=== PATIENT | male | born 1985 | race Caucasian/White ===

== ENCOUNTER 2020-01-15 18:20 | Emergency (ER) | payer SELFPAY ==
--- NOTE | 2020-01-15 19:20 | EDM.PDOCBH ---
<TabithaNegrito soliman Emma - Last Filed: 01/16/20 01:29> ED HPI GENERAL MEDICAL PROBLEM - General Chief Complaint: Behavioral/Psych Stated Complaint: MENTAL EVAL Time Seen by Provider: 01/15/20 18:55 Source of Information: Reports: Family (Mother) History Limitations: Reports: Altered Mental Status (Patient psychotic and unable to provide any meaningful information) - History of Present Illness INITIAL COMMENTS - FREE TEXT/NARRATIVE: Mr. Mo is a very pleasant 34-year-old gentleman with numerous psychiatric diagnoses, including dissociative identity disorder, bipolar affective disorder, and several others, all currently untreated, who is now brought to the ED by his mother, who is seeking psychiatric admission for her son. Mom states that the patient has been psychiatrically admitted numerous times in the past, but, specifically, was admitted for about 3 days each on 3 separate occasions over the past 3 weeks, the first in [place], the second and third in [place]. All 3 of the facilities were similar to our [facility], not formal psychiatric facilities. On each occasion, according to the patient's mother, the patient was treated with medication, improved rapidly, was discharged, but then did not take his outpatient medications, and rapidly psychiatrically decompensated. His most recent discharge was on 01/04/2020. He then came to this area from [place] by bus on 01/05/2020. He is currently staying with his mother. He was apparently brought home by the police after leaving a restaurant without paying, then trying to get into people's cars in the parking lot. He was walking around without a coat (today's temperatures was around 20 degrees). The patient's mother tells me that the patient's psychiatric issues began gradually about 6.5 years ago, when he was 28 years old. At that time, the patient's girlfriend was with their son, who is now 6 years old. The patient's mother mentioned that the patient smokes marijuana essentially all day, every day. She states that he is a heavy drinker, but has not had any reliable access to alcohol since coming to this area 10 days ago. Due to the patient's psychosis, I am unable to get any direct information out of the patient himself, such as whether or not he has any suicidal or homicidal thoughts, however, if his speech is any indication of his thoughts, they are wandering all over. Here in the ED, the patient's initial BP is found to be modestly elevated at 152/90, otherwise, the patient is hemodynamically stable, afebrile, saturating 98% on room air. To the patient's mother's knowledge, the patient has not had a recent fever, chills, sore throat, ear pain, nasal or sinus congestion, cough, dyspnea, chest pain, palpitations, nausea, vomiting, constipation, diarrhea, abdominal pain, urinary symptoms, recent weight gain or weight loss, recent bloody bowel movements or black bowel movements, recent joint aches, headaches, or rashes. The patient does not currently have a PCP or Psychiatrist. - Related Data Allergies Allergy/AdvReac Type Severity Reaction Status Date / Time vancomycin Allergy Rash Verified 01/15/20 18:38 Home Meds: Home Meds hydrOXYzine pamoate [Hydroxyzine Pamoate] 50 mg PO DAILY 01/15/20 [History] lamoTRIgine [Lamictal] 25 mg PO DAILY 01/15/20 [History] traZODone HCl [Trazodone HCl] 50 mg PO DAILY 01/15/20 [History] Past Medical History HEENT History: Reports: Impaired Vision Cardiovascular History: Reports: Hypertension (untreated) Gastrointestinal History: Reports: GERD (untreated) Psychiatric History: Reports: Bipolar (untreated), Other (See Below) (Dissociative identity disorder - untreated) Endocrine/Metabolic History: Reports: Obesity/BMI 30+ - Past Surgical History Dermatological Surgical History: Reports: Other (See Below) (Debridement of left hand infection) Social & Family History - Family History HEENT: Reports: None Cardiac: Reports: CAD, High Cholesterol, Hypertension, NE Endocrine/Metabolic: Reports: Hypothyroidism, Obesity/MBI 30+ - Tobacco Use Tobacco Use Status *Q: Never Tobacco User - Caffeine Use Caffeine Use: Reports: Other - Alcohol Use Alcohol Use History: Yes Alcohol Use Frequency: Daily - Recreational Drug Use Recreational Drug Use: Yes Drug Use in Last 12 Months: Yes Recreational Drug Type: Reports: Marijuana/Hashish (smokes all day, every day) - Living Situation & Occupation Living situation: Reports: Single, with Family (Mother, stepfather, 1 sister, 2 nieces) Occupation: Unemployed ED ROS GENERAL - Review of Systems Review Of Systems: Comprehensive ROS is negative, except as noted in HPI. ED EXAM, BEHAVIORAL HEALTH - Physical Exam Exam: See Below Exam Limited By: No Limitations (patient cooperated with my exam) General Appearance: Alert, WD/WN, No Apparent Distress Eye Exam: Bilateral Eye: EOMI, Normal Inspection Ears: Normal External Exam, Hearing Grossly Normal Nose: Normal Inspection Throat/Mouth: Normal Inspection, Normal Lips, Normal Voice, No Airway Compromise Head: Atraumatic, Normocephalic Neck: Normal Inspection, Full Range of Motion Respiratory/Chest: No Respiratory Distress, Lungs Clear, Normal Breath Sounds, No Accessory Muscle Use Cardiovascular: Normal Peripheral Pulses, Regular Rate, Rhythm, No Gallop, No JVD, No Murmur, No Rub GI/Abdominal: Normal Bowel Sounds, Soft, Non-Tender, No Organomegaly, No Distention, No Abnormal Bruit, No Mass Back Exam: Normal Inspection, Full Range of Motion, NT Extremities: Normal Inspection, Normal Range of Motion, Normal Capillary Refill Neurological: Alert, No Motor/Sensory Deficits Psychiatric: Other (Continuously talking to himself, sometimes commenting on the conversation between his mother and I, but with meaningless content) Skin Exam: Warm, Dry, Intact, Normal color, No rash #1 Interpretation EKG Date: 01/15/20 Time: 19:28 Rhythm: Other (Sinus tachycardia) Rate (Beats/Min): 106 [place]: Normal P-Wave: Enlarged (LAE) QRS: Other (Early transition) ST-T: Normal QT: Normal Comparison: NA - No Prior EKG COURSE, BEHAVIORAL HEALTH COMP - Course Medical Clearance: 01/15/20 19:16 As above, the patient has several psychiatric diagnoses, none currently treated, and is actively psychotic at this time. He will need psychiatric admission, therefore I have ordered a standard psychiatric medical clearance panel that includes blood work, a urine drug screen, and an ECG. I have also added a swab for the SARS-CoV-2 virus. 01/15/20 20:55 The patient's CBC is unremarkable. His CMP is remarkable for a blood glucose slightly elevated at 129, and an ALT slightly elevated at 69 with an AST normal at 34, and the remainder of his CMP being unremarkable. His magnesium level is within normal limits at 2.0. His TSH is within normal limits at 2.087. His salicylate level is within normal limits at 1.3. His acetaminophen level is 0. His EtOH level is 0.00. His urine drug screen is positive for marijuana, and is otherwise completely negative. His swab for the SARS-CoV-2 virus is negative. At this time, the patient is medically cleared for psychiatric admission. I will fill out 24-hour hold paperwork, and we will endeavor to find a bed. 01/15/20 21:43 Case discussed with Arslan at [facility] at 21:24. Case then discussed with Dr. Fallon, Psychiatrist at [facility], at 21:35. She feels that the patient will need to be in his own room, and not with a roommate. She will see if they can move some patients around on their ps ychiatric jon to accommodate the patient, then call us back. In the meantime, we are to fax our paperwork to them. 01/15/20 21:53 Contacted by Arslan at [facility] at 21:51. They will be able to accept the patient, pending approval of the hold paperwork. The patient will need to be transported by the [facility] department. [facility] cannot hold the bed for the patient, therefore if he cannot be transported into the morning, we will need to call again to see that the bed is still available. We will contact the [facility]'s department now, to see when they can transport the patient. If we do need to keep the patient overnight and he attempts to leave, we will contact the police and have him spend the night in half-way, however, so far, the patient has been cooperative. 01/15/20 23:07 Paula HERZOG asked if we could get the patient some form of a sedative to help him to sleep, since his mother is going to be leaving now, and the patient is still wide awake, talking to himself. I have ordered 5 mg of IM Haldol and 1 mg of oral Cogentin. 01/16/20 01:29 We have not heard back from the [facility] department, therefore we are presuming that the intent to transport the patient in the morning. Departure - Departure Disposition: DC/Tfer to Psych Hosp/Unit 65 Clinical Impression: Acute psychosis, History of bipolar disorder, Hallucinations - Discharge Information Referrals: PCP,None [Primary Care Provider] - Forms: ED Department Discharge Additional Instructions: Patient was transferred to [facility] psychiatric services at approximately 12:30 PM January 15. He was transported by [facility]'s department. Sepsis Event Note (ED) - Evaluation Sepsis Screening Result: No Definite Risk <CalistaDalton hunter - Last Filed: 01/16/20 13:38> COURSE, BEHAVIORAL HEALTH COMP - Course Vital Signs: Last Vital Signs Temp 36.8 C 01/15/20 18:44 Pulse 97 01/15/20 18:44 Resp 18 01/15/20 18:44 BP 152/90 H 01/15/20 18:44 Pulse Ox 98 01/15/20 18:44 Orders, Labs, Meds: Laboratory Tests 01/15/20 01/15/20 01/15/20 Range/Units 19:25 19:25 19:25 WBC 9.03 (4.23-9.07) K/mm3 RBC 5.69 (4.63-6.08) M/mm3 Hgb 15.4 (13.7-17.5) gm/dl Hct 46.5 (40.1-51.0) % MCV 81.7 (79.0-92.2) fl MCH 27.1 (25.7-32.2) pg MCHC 33.1 (32.2-35.5) g/dl RDW Std Deviation 40.2 (35.1-43.9) fL Plt Count 253 (163-337) K/mm3 MPV 10.9 (9.4-12.3) fl Neutrophils % (Manual) 57 (40-60) % Band Neutrophils % 0 (0-10) % Lymphocytes % (Manual) 27 (20-40) % Atypical Lymphs % 6 % Monocytes % (Manual) 8 (2-10) % Eosinophils % (Manual) 0 L (0.8-7.0) % Basophils % (Manual) 2 H (0.2-1.2) Platelet Estimate Adequate RBC Morph Comment Normal Sodium 137 (136-145) mEq/L Potassium 3.7 (3.5-5.1) mEq/L Chloride 102 (98-107) mEq/L Carbon Dioxide 24 (21-32) mEq/L Anion Gap 14.7 (5-15) BUN 14 (7-18) mg/dL Creatinine 0.9 (0.7-1.3) mg/dL Est Cr Clr Drug Dosing 140.83 mL/min Estimated GFR (MDRD) > 60 (>60) mL/min BUN/Creatinine Ratio 15.6 (14-18) Glucose 129 H (74-106) mg/dL Calcium 9.4 (8.5-10.1) mg/dL Magnesium 2.0 (1.8-2.4) mg/dl Total Bilirubin 0.2 (0.2-1.0) mg/dL AST 34 (15-37) U/L ALT 69 H (16-63) U/L Alkaline Phosphatase 75 (46-116) U/L Total Protein 7.6 (6.4-8.2) g/dl Albumin 3.8 (3.4-5.0) g/dl Globulin 3.8 gm/dL Albumin/Globulin Ratio 1.0 (1-2) TSH 3rd Generation 2.087 (0.358-3.74) uIU/mL Salicylates (2.8-20) mg/dL Urine Opiates Screen Negative (NPLIQF=504) Ur Buprenorphine Scrn Negative (CUTOFF=10) Ur Oxycodone Screen Negative (NSQ1NN=080) Urine Methadone Screen Negative (REK9PC=367) Ur Propoxyphene Screen Negative (UMJLVS=817) Acetaminophen 0 L (10-30) ug/mL Ur Barbiturates Screen Negative (BXXHWT=305) Ur Tricyclics Screen Negative (IQVKKB=733) Ur Phencyclidine Scrn Negative (CUTOFF=25) Ur Amphetamine Screen Negative (HFWTPJ=003) U Methamphetamines Scrn Negative (KQHTMR=578) U Benzodiazepines Scrn Negative (HCLWXF=526) U Cocaine Metab Screen Negative (JHAHDF=114) U Marijuana (THC) Screen Presumptive positive H (CUTOFF=50) Ethyl Alcohol 0.00 (0.00) gm% SARS-CoV-2 RNA (JUSTINO) (NEGATIVE) 01/15/20 01/15/20 Range/Units 19:25 19:30 WBC (4.23-9.07) K/mm3 RBC (4.63-6.08) M/mm3 Hgb (13.7-17.5) gm/dl Hct (40.1-51.0) % MCV (79.0-92.2) fl MCH (25.7-32.2) pg MCHC (32.2-35.5) g/dl RDW Std Deviation (35.1-43.9) fL Plt Count (163-337) K/mm3 MPV (9.4-12.3) fl Neutrophils % (Manual) (40-60) % Band Neutrophils % (0-10) % Lymphocytes % (Manual) (20-40) % Atypical Lymphs % % Monocytes % (Manual) (2-10) % Eosinophils % (Manual) (0.8-7.0) % Basophils % (Manual) (0.2-1.2) Platelet Estimate RBC Morph Comment Sodium (136-145) mEq/L Potassium (3.5-5.1) mEq/L Chloride (98-107) mEq/L Carbon Dioxide (21-32) mEq/L Anion Gap (5-15) BUN (7-18) mg/dL Creatinine (0.7-1.3) mg/dL Est Cr Clr Drug Dosing mL/min Estimated GFR (MDRD) (>60) mL/min BUN/Creatinine Ratio (14-18) Glucose (74-106) mg/dL Calcium (8.5-10.1) mg/dL Magnesium (1.8-2.4) mg/dl Total Bilirubin (0.2-1.0) mg/dL AST (15-37) U/L ALT (16-63) U/L Alkaline Phosphatase (46-116) U/L Total Protein (6.4-8.2) g/dl Albumin (3.4-5.0) g/dl Globulin gm/dL Albumin/Globulin Ratio (1-2) TSH 3rd Generation (0.358-3.74) uIU/mL Salicylates 1.3 L (2.8-20) mg/dL Urine Opiates Screen (GSHOMQ=665) Ur Buprenorphine Scrn (CUTOFF=10) Ur Oxycodone Screen (BYM8AV=868) Urine Methadone Screen (LRE2AQ=557) Ur Propoxyphene Screen (KFPNTY=639) Acetaminophen (10-30) ug/mL Ur Barbiturates Screen (LLHMWN=274) Ur Tricyclics Screen (JPFAEL=922) Ur Phencyclidine Scrn (CUTOFF=25) Ur Amphetamine Screen (FWLZHW=732) U Methamphetamines Scrn (NBODJA=730) U Benzodiazepines Scrn (YZXAAL=569) U Cocaine Metab Screen (EZDQSH=687) U Marijuana (THC) Screen (CUTOFF=50) Ethyl Alcohol (0.00) gm% SARS-CoV-2 RNA (JUSTINO) Negative (NEGATIVE) Medications Discontinued Medications Generic Name Dose Route Start Last Admin Trade Name Lili PRN Reason Stop Dose Admin Aripiprazole 5 mg 01/16/20 06:58 01/16/20 08:34 Abilify PO 01/16/20 06:59 5 mg ONETIME ONE Administration Benztropine Mesylate 1 mg 01/15/20 23:07 01/15/20 23:14 Cogentin PO 01/15/20 23:08 1 mg ONETIME STA Administration Haloperidol Lactate 5 mg 01/15/20 23:07 01/15/20 23:13 Haldol IM 01/15/20 23:08 5 mg ONETIME ONE Administration Lorazepam 1 mg 01/16/20 06:58 Ativan IV 01/16/20 06:59 ONETIME ONE Lorazepam 1 mg 01/16/20 08:21 01/16/20 08:34 Ativan PO 01/16/20 08:22 1 mg ONETIME ONE Administration Medical Clearance: 01/16/20 06:59 time it is unclear when [facility] department may be able to transfer this patient to [place] for psychiatric care. Plan will be to give him Abilify 5 mg orally as well as Ativan 1 mg orally next time he wakes up in an effort to maintain some degree of sedation and perhaps control of psychotic thought processes. 01/16/20 12:[address] [facility] department has arrived to provide transport of this patient to [facility] to psychiatric service. He remains quite calm and mildly sleepy during his stay in the ED this morning. Departure - Departure Time of Disposition: 12:30 Condition: Fair - Discharge Information *PRESCRIPTION DRUG MONITORING PROGRAM REVIEWED*: Not Applicable *COPY OF PRESCRIPTION DRUG MONITORING REPORT IN PATIENT JANIE: Not Applicable
[2020-01-15 20:06] LABS: ACETAMINOPHEN 0 ug/mL (10-30)
[2020-01-15] MEDS ORDERED: Haloperidol Lactate 5 MG/ML SDV IM ONE (23:07)
[2020-01-15] MEDS ORDERED: Benztropine 1 MG Tab PO STA (23:07)
[2020-01-16] MEDS ORDERED: LORazepam 2 MG/ML SDV IV ONE (06:58)
[2020-01-16] MEDS ORDERED: ARIPiprazole 5 MG Tab PO ONE (06:58)
[2020-01-16] MEDS ORDERED: LORazepam 1 MG Tab PO ONE (08:21)
== END 2020-01-16 12:30 ==
LOC: JD.ED 18:20
DX: F31.9 Bipolar disorder, unspecified (principal); I10 Essential (primary) hypertension; E66.9 Obesity, unspecified; Z88.1 Allergy status to other antibiotic agents; Z79.899 Other long term (current) drug therapy; Z68.41 Body mass index [BMI] 40.0-44.9, adult
CPT/HCPCS: 36415; 80053; 80306; 80307; 83735; 84443; 85007; 85027; 87635; 93005; 96372; 99285; A9270; J1630; 93010; U0002